=== PATIENT | female | born 1985 | race Caucasian/White ===

== ENCOUNTER 2016-12-22 13:45 | Emergency (ER) | payer BC, MEDICAID ==
--- NOTE | 2016-12-22 14:15 | Emergency Department Record ---
History of Present Illness - General Chief Complaint: Back Pain/Injury Stated Complaint: FELL/INJURED BUTT & BACK Time Seen by Provider: 12/22/16 14:10 Source: Patient Mode of Arrival: Ambulatory Limitations: No limitations - History of Present Illness Initial Comments: The patient fell at work 24 days ago and landed on her L buttocks and back. She now has been having progressively increasing pain in the region. The pain does not radiate down the legs. She denies any spine or abdominal pain and has had no leg numbness or weakness. When she told her boss today she had been having pain she was told she needed to go to the ER for treatment because it was work comp. Complaint: Back pain Onset/Timin -: Days(s) Similar Symptoms Previously: No Place: Work Radiation: None Severity: Moderate Severity scale (1-10): 8 Quality: Aching Consistency: Constant Improves With: None Worsens With: Movement, Other Context: Fall Associated Symptoms: Denies other symptoms Treatments Prior to Arrival: NSAIDS - Related Data Home Medications Medication Instructions Recorded Confirmed Last Taken No Home Med [NO HOME MEDS] 12/22/16 12/22/16 Unknown Allergies Allergy/AdvReac Type Severity Reaction Status Date / Time No Known Allergies Allergy NONE Verified 12/22/16 14:09 Travel Screening - Travel/Exposure Within Last 30 Days Have you traveled within the last 30 days?: No - Travel/Exposure Within Last Year Have you traveled outside the [place] in the last year?: No - Additonal Travel Details Have you been exposed to anyone with a communicable illness?: No Review of Systems Constitutional: Denies: Chills, Fever Past Medical History - SOCIAL HISTORY Smoking Status: Never smoker Alcohol Use: None Drug Use: None - RESPIRATORY Hx Respiratory Disorders: No - CARDIOVASCULAR Hx Cardio Disorders: No - NEURO Hx Neuro Disorders: No - GI Hx GI Disorders: No - Hx Genitourinary Disorders: Yes Hx Kidney Stones: Yes - ENDOCRINE Hx Endocrine Disorders: No - MUSCULOSKELETAL Hx Musculoskeletal Disorders: No - PSYCH Hx Psych Problems: No - HEMATOLOGY/ONCOLOGY Hx Hematology/Oncology Disorders: No Family Medical History Any Significant Family History?: No Physical Exam - General General Appearance: Alert, Oriented x3, Cooperative, No acute distress - Head Head exam: Atraumatic, Normocephalic, Normal inspection - Eye Eye exam: Normal appearance, PERRL - Respiratory Respiratory exam: Normal lung sounds bilaterally. negative: Respiratory distress - Cardiovascular Cardiovascular Exam: Regular rate, Normal rhythm, Normal heart sounds - GI/Abdominal GI/Abdominal exam: Soft, Normal bowel sounds. negative: Tenderness - Extremities Extremities exam: Normal inspection, Full ROM, Normal capillary refill. negative: Tenderness Image of Full Body: 1 - location of the pain and tenderness. - Back Back exam: Reports: Normal inspection, Tenderness (There is tenderness to palpation over the L lateral posterior pelvis area.). Denies: Vertebral tenderness - Neurological Neurological exam: Alert, Normal gait, Oriented X3. negative: Abnormal gait, Altered, Motor sensory deficit Course Vital Signs 12/22/16 14:01 Temperature 98.4 F Pulse Rate 72 Respiratory 20 Rate Blood Pressure 105/69 Pulse Ox 96 - Reevaluation(s) Reevaluation #1: I did explain the neg xray to the patient and the need for F/U. 12/22/16 15:15 Medical Decision Making - Data Complexity MDM Data: X-Ray Ordered and/or Reviewed - Radiology Data Radiology results: Report reviewed (Pelvis: Neg.) Disposition Disposition: Discharge Clinical Impression: Injury of pelvis Qualifiers: Encounter type: initial encounter Qualified Code(s): S39.93XA - Unspecified injury of pelvis, initial encounter Disposition: Home, Self-Care Instructions: Low Back Strain (ED) Additional Instructions: Please use Tylenol or Motrin for pain. Please see your work Occupational health provider in 3 days if not better. Forms: Patient Portal Access Time of Disposition: 15:16
== END 2016-12-22 16:00 | disposition home or self-care (01) ==
LOC: ER 13:45
DX: S39.93XA Unspecified injury of pelvis, initial encounter (principal); M54.5 Low back pain; W19.XXXA Unspecified fall, initial encounter; Y92.512 Supermarket, store or market as the place of occurrence of the external cause; Y99.0 Civilian activity done for income or pay
CPT/HCPCS: 72170; 99283

== ENCOUNTER 2017-07-12 18:30 | Emergency (ER) | payer BC ==
[2017-07-12] MEDS ORDERED: METOCLOPRAMIDE HCL 10 MG/2 ML VIAL IVP ONE (19:37)
[2017-07-12] MEDS ORDERED: DIPHENHYDRAMINE HCL IV 50 MG/ML VIAL IVP ONE (19:37)
[2017-07-12] MEDS ORDERED: KETOROLAC 30 MG/ML VIAL IVP ONE (19:37)
--- NOTE | 2017-07-12 19:43 | Emergency Department Record ---
History of Present Illness - General Chief Complaint: Headache Migraine Stated Complaint: MIGRAINE Time Seen by Provider: 07/12/17 19:37 Source: Patient Mode of Arrival: Ambulatory Limitations: No limitations - History of Present Illness Initial Comments: 31 yo female presents to ED for evaluation of a migraine headache that began this morning. Patient reports that she normally takes Maxalt for her chronic migraine headaches, however she started Buspar for anxiety last week and was told by the pharmacy that her Maxalt could cause a medication reaction, so she did not take the medication at home. Patient denies fevers, chills, or neck stiffness symptoms, reports that her headache symptoms are similar to previous episodes. MD Complaint: Headache Onset/Timin -: Hour(s) Onset Description: Gradual Location: Frontal, Right, Temporal Severity: Severe Severity scale (1-10): 10 Quality: Similar to previous headaches Consistency: Constant Improves With: Medication Worsens With: Light, Noise - Related Data Home Medications Medication Instructions Recorded Confirmed Last Taken Buspirone HCl [Buspar] 5 mg PO BID 07/12/17 07/12/17 Unknown Allergies Allergy/AdvReac Type Severity Reaction Status Date / Time No Known Allergies Allergy NONE Unverified 04/28/17 08:56 Travel Screening - Travel/Exposure Within Last 30 Days Have you traveled within the last 30 days?: No Review of Systems Constitutional: Denies: Chills, Fever, Malaise, Night sweats Eyes: Denies: Eye discharge, Eye pain ENT: Denies: Congestion, Ear pain, Epistaxis Respiratory: Denies: Cough, Dyspnea Cardiovascular: Denies: Chest pain, Dyspnea on exertion Endocrine: Denies: Fatigue, Heat or cold intolerance Gastrointestinal: Denies: Abdominal pain, Nausea, Vomiting Genitourinary: Denies: Incontinence, Retention Musculoskeletal: Denies: Arthralgia, Back pain, Gout, Joint swelling Skin: Denies: Bruising, Change in color Neurological: Reports: Headache. Denies: Abnormal gait, Confusion, Seizure Psychiatric: Denies: Anxiety Hematological/Lymphatic: Denies: Anemia, Blood Clots Past Medical History - SOCIAL HISTORY Smoking Status: Never smoker Alcohol Use: None Drug Use: None - RESPIRATORY Hx Respiratory Disorders: No - CARDIOVASCULAR Hx Cardio Disorders: No - NEURO Hx Neuro Disorders: No - GI Hx GI Disorders: No - Hx Genitourinary Disorders: Yes Hx Kidney Stones: Yes - ENDOCRINE Hx Endocrine Disorders: No - MUSCULOSKELETAL Hx Musculoskeletal Disorders: No - PSYCH Hx Psych Problems: No - HEMATOLOGY/ONCOLOGY Hx Hematology/Oncology Disorders: No Family Medical History Any Significant Family History?: No Physical Exam - General General Appearance: Alert, Oriented x3, Cooperative, Mild distress Limitations: No limitations - Head Head exam: Atraumatic, Normocephalic, Normal inspection Head exam detail: negative: Abrasion, Contusion, Sneed's sign, General tenderness, Hematoma, Laceration - Eye Eye exam: Normal appearance. negative: Conjunctival injection, Periorbital swelling, Periorbital tenderness, Scleral icterus - ENT Ear exam: negative: Auricular hematoma, Auricular trauma Nasal Exam: negative: Active bleeding, Discharge, Dried blood, Foreign body Mouth exam: negative: Drooling, Laceration, Muffled voice, Tongue elevation - Neck Neck exam: Normal inspection. negative: Meningismus, Tenderness - Respiratory Respiratory exam: Normal lung sounds bilaterally. negative: Rales, Respiratory distress, Rhonchi, Stridor - Cardiovascular Cardiovascular Exam: Regular rate, Normal rhythm, Normal heart sounds - GI/Abdominal GI/Abdominal exam: Soft. negative: Rebound, Rigid, Tenderness - Rectal Rectal exam: Deferred - exam: Deferred - Extremities Extremities exam: Normal inspection. negative: Calf tenderness, Pedal edema, Tenderness - Back Back exam: Denies: CVA tenderness (R), CVA tenderness (L) - Neurological Neurological exam: Alert, Normal gait, Oriented X3 - Psychiatric Psychiatric exam: Normal affect, Normal mood - Skin Skin exam: Normal color. negative: Abrasion Type of lesion: negative: abrasion Course Vital Signs 07/12/17 19:28 Temperature 98.7 F Pulse Rate [ 76 Pulse Ox Probe] Respiratory 20 Rate Blood Pressure 115/83 [Left Arm] Pulse Ox 100 - Reevaluation(s) Reevaluation #1: 07/12/17 20:32 patient reassessed and reports that her headache symptoms are down to 2/10 from 05/19. Patient appears stable for discharge at this time. 07/12/17 20:35 Disposition Disposition: Discharge Clinical Impression: Acute headache Qualifiers: Headache type: unspecified Intractability: not intractable Qualified Code(s): R51 - Headache Disposition: Home, Self-Care Condition: (2) Stable Instructions: Acute Headache (ED) Additional Instructions: Return to ED if your symptoms worsen or if you have any concerns. Follow-up with your family doctor in 3-5 days as directed. Forms: Patient Portal Access Time of Disposition: 20:33 Quality - Quality Measures Quality Measures: N/A - Blood Pressure Screening Does Patient Have Any of the Following: No Blood Pressure Classification: Pre-Hypertensive BP Reading Systolic Measurement: 115 Diastolic Measurement: 83 Screening for High Blood Pressure: < Pre-Hypertensive BP, F/U Documented > [ G8950] Pre-Hypertensive Follow-up Interventions: Referral to alternative/primary care provider.
[2017-07-12] MEDS ORDERED: 0.9 % SODIUM CHLORIDE 1000ML 1,000 ML IV SCH (19:45)
== END 2017-07-12 20:45 | disposition home or self-care (01) ==
LOC: ER 18:30
DX: R51 Headache (principal); R11.0 Nausea; H53.149 Visual discomfort, unspecified
CPT/HCPCS: 99284 ×2; 96374; 96375; J1885; J1200; J2765; J7030

== ENCOUNTER 2017-07-13 12:36 | Emergency (ER) | payer BC ==
[2017-07-13] MEDS ORDERED: DIPHENHYDRAMINE HCL IV 50 MG/ML VIAL IVP ONE (12:53)
[2017-07-13] MEDS ORDERED: METOCLOPRAMIDE HCL 10 MG/2 ML VIAL IVP ONE (12:53)
[2017-07-13] MEDS ORDERED: KETOROLAC 30 MG/ML VIAL IVP ONE (12:53)
--- NOTE | 2017-07-13 12:53 | Emergency Department Record ---
History of Present Illness - General Chief Complaint: Headache Migraine Stated Complaint: MIGRAINE Time Seen by Provider: 07/13/17 12:39 Source: Patient Mode of Arrival: Ambulatory Limitations: No limitations - History of Present Illness Initial Comments: The patient is here due to a migraine CASANOVA that is not relieved with Alleve. She states she has chronic migraine CASANOVA's and has had these exact same CASANOVA's for years. She recently started on Buspar 4 days ago and because of that medicine does not believe she can take her Maxalt due to possible interactions. She states the Maxalt has helped her for years but now she is nervous because of the interactions she read about and is reluctant to take it. The CASANOVA onset was at 7am and it has gradually worsened. She does have mild photophobia but no fever, neck stiffness or vomiting. This CASANOVA is exactly like her chronic migraine CASANOVA's. MD Complaint: "Migraine" Onset/Timin -: Hour(s) Onset Description: Gradual Location: Frontal Consistency: Constant Treatments Prior to Arrival: Other Treatment Prior to Arrival Comment:: Aleve - Related Data Allergies Allergy/AdvReac Type Severity Reaction Status Date / Time No Known Allergies Allergy NONE Unverified 04/28/17 08:56 Travel Screening - Travel/Exposure Within Last 30 Days Have you traveled within the last 30 days?: No - Travel/Exposure Within Last Year Have you traveled outside the [place] in the last year?: No - Additonal Travel Details Have you been exposed to anyone with a communicable illness?: No - Travel Symptoms Symptom Screening: None Review of Systems Constitutional: Denies: Chills, Fever Eyes: Denies: Eye discharge ENT: Denies: Congestion Respiratory: Denies: Cough, Dyspnea Past Medical History - SOCIAL HISTORY Smoking Status: Never smoker Alcohol Use: None Drug Use: None - RESPIRATORY Hx Respiratory Disorders: No - CARDIOVASCULAR Hx Cardio Disorders: No - NEURO Hx Neuro Disorders: No - GI Hx GI Disorders: No - Hx Genitourinary Disorders: Yes Hx Kidney Stones: Yes - ENDOCRINE Hx Endocrine Disorders: No - MUSCULOSKELETAL Hx Musculoskeletal Disorders: No - PSYCH Hx Psych Problems: No - HEMATOLOGY/ONCOLOGY Hx Hematology/Oncology Disorders: No Family Medical History Any Significant Family History?: No Physical Exam - General General Appearance: Alert, Oriented x3, Cooperative, No acute distress - Head Head exam: Atraumatic, Normocephalic, Normal inspection - Eye Eye exam: Normal appearance, PERRL, EOMI - ENT Throat exam: Normal inspection. negative: Tonsillar erythema, Tonsillar exudate - Neck Neck exam: Normal inspection, Full ROM. negative: Meningismus, Tenderness - Respiratory Respiratory exam: Normal lung sounds bilaterally. negative: Respiratory distress - Cardiovascular Cardiovascular Exam: Regular rate, Normal rhythm, Normal heart sounds - GI/Abdominal GI/Abdominal exam: Soft, Normal bowel sounds. negative: Tenderness - Extremities Extremities exam: Normal inspection, Full ROM, Normal capillary refill. negative: Tenderness - Neurological Neurological exam: Alert, Normal gait, Oriented X3. negative: Abnormal gait, Motor sensory deficit - Psychiatric Psychiatric exam: negative: Anxious, Depressed Course Vital Signs 07/13/17 12:38 Temperature 98.2 F Pulse Rate 74 Respiratory 16 Rate Blood Pressure 110/72 Pulse Ox 100 - Reevaluation(s) Reevaluation #1: The patient is doing well at this time. The pain is resolving and she is resting comfortably. 07/13/17 13:33 Reevaluation #2: The patient is doing very well at this time. Her pain has completely resolved and she is ready for home. 07/13/17 13:47 Disposition Disposition: Discharge Clinical Impression: Migraine Qualifiers: Migraine type: unspecified Status migrainosus presence: without status migrainosus Intractability: not intractable Qualified Code(s): G43.909 - Migraine, unspecified, not intractable, without status migrainosus Disposition: Home, Self-Care Condition: (2) Stable Instructions: Migraine Headache (ED) Additional Instructions: Please take your Maxalt if needed. Please see your PCP in 2 days as planned. Return to the ER for any problems or increased pain. Forms: Patient Portal Access Time of Disposition: 13:48 Quality - Quality Measures Quality Measures: N/A - Blood Pressure Screening View Details: Yes Does Patient Have Any of the Following: No Blood Pressure Classification: Normal BP Reading Systolic Measurement: 110 Diastolic Measurement: 72 Screening for High Blood Pressure: < Normal BP, F/U Not Required > [G8783]
[2017-07-13] MEDS ORDERED: 0.9 % SODIUM CHLORIDE 1,000 ML BAG IV ONE (12:59)
== END 2017-07-13 13:59 | disposition home or self-care (01) ==
LOC: ER 12:36
DX: G43.909 Migraine, unspecified, not intractable, without status migrainosus (principal); H53.149 Visual discomfort, unspecified
CPT/HCPCS: 99284 ×2; 96374; 96375; J1885; J1200; J2765; J7030

== ENCOUNTER 2017-08-04 09:14 | Emergency (ER) | payer BC ==
[2017-08-04] MEDS ORDERED: METOCLOPRAMIDE HCL 10 MG/2 ML VIAL IVP ONE (09:32)
[2017-08-04] MEDS ORDERED: 0.9 % SODIUM CHLORIDE 1,000 ML BAG IV ONE (09:32)
[2017-08-04] MEDS ORDERED: DIPHENHYDRAMINE HCL IV 50 MG/ML VIAL IVP ONE (09:32)
[2017-08-04] MEDS ORDERED: KETOROLAC 30 MG/ML VIAL IVP ONE (09:32)
[2017-08-04 09:44] LABS: BASO % 0.4 % (0-6); EOS % 1.2 % (0-6); GRAN % 64.2 % (47-80); HEMATOCRIT 41.7 % (35.0-47.0); HEMOGLOBIN 13.6 gm/dl (11.6-16.0); LYMPH % 24.3 % (16-45); MEAN CELL VOLUME 94.6 fl (81-97); MEAN CORPUSCULAR HEMOGLOBIN 30.8 pg (27-33); MEAN CORPUSCULAR HGB CONC 32.6 g/dl (32-36); MONO % 9.9 % (0-9); PLATELET COUNT 312 K/uL (130-400); RED BLOOD COUNT 4.41 M/uL (3.80-5.40); RED CELL DISTRIBUTION WIDTH 12.2 % (11.5-14.5); WHITE BLOOD COUNT W/O DIFF 5.6 K/uL (4.2-12.2)
[2017-08-04 09:54] LABS: BLOOD UREA NITROGEN 13 mg/dL (6-20); CREATININE 0.6 mg/dL (0.5-0.9); EST GLOMERULAR FILTRATION RATE > 60 mL/min
--- NOTE | 2017-08-04 09:56 | Emergency Department Record ---
History of Present Illness - General Chief Complaint: Headache Migraine Stated Complaint: MIGRAINE Time Seen by Provider: 08/04/17 09:24 Source: Patient Mode of Arrival: Ambulatory Limitations: No limitations - History of Present Illness Initial Comments: pt has had a headache for 4 days that wont go away. she vomited yesterday. she has never had a ct though she has been to drs for her headaches and was started on migraine meds. she states her headaches are always on the right behind the eye. MD Complaint: Headache Onset/Timin -: Days(s) Onset Description: Sudden Location: Frontal, Right, Temporal Severity: Severe Severity scale (1-10): 10 Quality: Aching, Pulsatile, Sharp, Throbbing Consistency: Constant Improves With: Nothing Worsens With: None Associated Symptoms: Nausea, Vomiting Treatments Prior to Arrival: Ibuprofen - Related Data Allergies Allergy/AdvReac Type Severity Reaction Status Date / Time No Known Allergies Allergy NONE Verified 08/04/17 09:17 Travel Screening - Travel/Exposure Within Last 30 Days Have you traveled within the last 30 days?: No - Travel/Exposure Within Last Year Have you traveled outside the [place] in the last year?: No - Additonal Travel Details Have you been exposed to anyone with a communicable illness?: No - Travel Symptoms Symptom Screening: None Review of Systems Reviewed: No additional complaints except as noted below Constitutional: Reports: As per HPI. Denies: Chills, Fever, Malaise, Night sweats, Weakness, Weight change Eyes: Reports: As per HPI. Denies: Eye discharge, Eye pain, Photophobia, Vision change ENT: Reports: As per HPI. Denies: Congestion, Dental pain, Ear pain, Epistaxis , Hearing loss, Throat pain Respiratory: Reports: As per HPI. Denies: Cough, Dyspnea, Hemoptysis, Stridor, Wheezes Cardiovascular: Reports: As per HPI. Denies: Arrhythmia, Chest pain, Dyspnea on exertion, Edema, Murmurs, Orthopnea, Palpitations, Paroxysmal nocturnal dyspnea, Rheumatic Fever, Syncope Endocrine: Reports: As per HPI. Denies: Fatigue, Heat or cold intolerance, Polydipsia, Polyuria Gastrointestinal: Reports: As per HPI. Denies: Abdominal pain, Constipation, Diarrhea, Hematemesis, Hematochezia, Melena, Nausea, Vomiting Genitourinary: Reports: As per HPI. Denies: Abnormal menses, Discharge, Dyspareunia, Dysuria, Frequency, Hematuria, Incontinence, Retention, Urgency Musculoskeletal: Reports: As per HPI. Denies: Arthralgia, Back pain, Gout, Joint swelling, Myalgia, Neck pain Skin: Reports: As per HPI. Denies: Bruising, Change in color, Change in hair/ nails, Lesions, Pruritus, Rash Neurological: Reports: As per HPI. Denies: Abnormal gait, Confusion, Headache, Numbness, Paresthesias, Seizure, Tingling, Tremors, Vertigo, Weakness Psychiatric: Reports: As per HPI. Denies: Anxiety, Auditory hallucinations, Depression, Homicidal thoughts, Suicidal thoughts, Visual hallucinations Hematological/Lymphatic: Reports: As per HPI. Denies: Anemia, Blood Clots, Easy bleeding, Easy bruising, Swollen glands Past Medical History - SOCIAL HISTORY Smoking Status: Never smoker Alcohol Use: None Drug Use: None - RESPIRATORY Hx Respiratory Disorders: No - CARDIOVASCULAR Hx Cardio Disorders: No - NEURO Hx Neuro Disorders: Yes Hx Headaches: Yes - GI Hx GI Disorders: No - Hx Genitourinary Disorders: Yes Hx Kidney Stones: Yes - ENDOCRINE Hx Endocrine Disorders: No - MUSCULOSKELETAL Hx Musculoskeletal Disorders: No - PSYCH Hx Psych Problems: No - HEMATOLOGY/ONCOLOGY Hx Hematology/Oncology Disorders: No Family Medical History Any Significant Family History?: No Physical Exam - General General Appearance: Alert, Oriented x3, Cooperative, Mild distress - Head Head exam: Normal inspection - Eye Eye exam: Normal appearance, PERRL, EOMI Pupils: Normal accommodation - ENT ENT exam: Normal exam, Mucous membranes moist, Normal external ear exam, Normal orophraynx Ear exam: Normal external inspection. negative: External canal tenderness Nasal Exam: Normal inspection. negative: Discharge, Sinus tenderness Mouth exam: Normal external inspection, Tongue normal Teeth exam: Normal inspection. negative: Dental caries Throat exam: Normal inspection. negative: Tonsillar erythema, Tonsillar exudate - Neck Neck exam: Normal inspection, Full ROM. negative: Tenderness - Respiratory Respiratory exam: Normal lung sounds bilaterally. negative: Respiratory distress - Cardiovascular Cardiovascular Exam: Regular rate, Normal rhythm, Normal heart sounds - GI/Abdominal GI/Abdominal exam: Soft, Normal bowel sounds. negative: Tenderness - Rectal Rectal exam: Deferred - exam: Deferred - Extremities Extremities exam: Normal inspection, Full ROM, Normal capillary refill. negative: Tenderness - Back Back exam: Reports: Normal inspection, Full ROM. Denies: Muscle spasm, Rash noted, Tenderness - Neurological Neurological exam: Alert, CN II-XII intact, Normal gait, Oriented X3 - Psychiatric Psychiatric exam: Normal affect, Normal mood - Skin Skin exam: Dry, Intact, Normal color, Warm Course Vital Signs 08/04/17 09:19 Temperature 97.4 F L Pulse Rate 74 Respiratory 20 Rate Blood Pressure 112/69 Pulse Ox 100 Medical Decision Making - Lab Data Result diagrams: 08/04/17 09:35 08/04/17 09:35 Lab Results 08/04/17 Range/Units 09:35 WBC 5.6 (4.2-12.2) K/uL RBC 4.41 (3.80-5.40) M/uL Hgb 13.6 (11.6-16.0) gm/dl Hct 41.7 (35.0-47.0) % MCV 94.6 (81-97) fl MCH 30.8 (27-33) pg MCHC 32.6 (32-36) g/dl RDW 12.2 (11.5-14.5) % Plt Count 312 (130-400) K/uL MPV 10.0 (7.4-10.4) fl Gran % 64.2 (47-80) % Lymphocytes % 24.3 (16-45) % Monocytes % 9.9 H (0-9) % Eosinophils % 1.2 (0-6) % Basophils % 0.4 (0-6) % Disposition Disposition: Discharge Clinical Impression: Migraine Qualifiers: Migraine type: unspecified Status migrainosus presence: without status migrainosus Intractability: not intractable Qualified Code(s): G43.909 - Migraine, unspecified, not intractable, without status migrainosus Disposition: Home, Self-Care Condition: (1) Good Instructions: Migraine Headache (ED) Additional Instructions: follow up with family doctor and neurologist. return sooner if worse. Quality - Quality Measures Quality Measures: N/A - Blood Pressure Screening Does Patient Have Any of the Following: No Blood Pressure Classification: Normal BP Reading Systolic Measurement: 112 Diastolic Measurement: 69 Screening for High Blood Pressure: < Normal BP, F/U Not Required > [G8783]
[2017-08-04 09:57] LABS: GLUCOSE,RANDOM 86 mg/dL (74-109)
[2017-08-04 10:23] LABS: ERYTHROCYTE SEDIMENTATION RATE 2 mm/hr (0-20)
--- NOTE | 2017-08-04 12:19 | CT SCAN REPORT ---
EXAM: CT SCAN HEAD WO CONTRAST HISTORY: SEVERE MIGRAINE HEADACHE. TECHNIQUE: Routine noncontrast CT examination of the head. COMPARISON: None. FINDINGS: The ventricles and subarachnoid spaces are normal in size. There is calcification within each globus pallidus. These appear symmetric. No other area of abnormally increased or decreased attenuation is noted throughout the brain substance. No abnormal extraaxial fluid collection is seen. No skull abnormality. The visualized paranasal sinuses and mastoid air cells are clear. There is rightward deviation of the osseous nasal septum. The orbits as visualized are unremarkable. IMPRESSION: NO CT EVIDENCE OF AN ACUTE INTRACRANIAL ABNORMALITY. BILATERAL GLOBUS PALLIDUS CALCIFICATION, THE ETIOLOGY OF WHICH IS INDETERMINATE. THIS CAN BE SEEN WITH METABOLIC AND INHERITED DISORDERS WELL TOXIC AND POSTINFECTIOUS ETIOLOGIES. THIS CAN ALSO BE IDIOPATHIC. JOB NUMBER: [id number] [facility]
== END 2017-08-04 10:55 | disposition home or self-care (01) ==
LOC: ER 09:14
DX: G43.909 Migraine, unspecified, not intractable, without status migrainosus (principal); R11.2 Nausea with vomiting, unspecified
CPT/HCPCS: 70450; 80048; 85025; 85651; 96374; 96375; 99284; J1200; J1885; J2765; J7030

== ENCOUNTER 2019-07-21 11:19 | Emergency (ER) | payer BC, MEDICAID, OTHER ==
--- NOTE | 2019-07-21 11:42 | Emergency Department Record ---
History of Present Illness - General Chief Complaint: Abdominal Pain Stated Complaint: ABD PAIN Time Seen by Provider: 07/21/19 11:28 Source: Patient Mode of Arrival: Ambulatory Limitations: No limitations - History of Present Illness Initial Comments: 33 yo female presents with about three months of abdominal pain. The pain is in the epigastric area and radiates to the chest at times. She does get some reflux symptoms frequently. She has pain with some foods. She reports she did have upper endoscopy once that demonstrated esophageal inflammation. She is on Prilosec twice daily. She does not smoke or drink. She is now avoiding certain foods and beverages. MD Complaint: Abdominal pain Onset/Timin -: Month(s) (3) Location: Epigastric Radiation: Chest, Epigastric Migration to: Epigastric Severity: Moderate Severity scale (1-10): 7 Quality: Dull Consistency: Constant Improves With: Medication, Other Worsens With: Eating Associated Symptoms: Anorexia, Other (No black stools) - Related Data LMP (females 10-50): Last week Home Medications Medication Instructions Recorded Confirmed Last Taken Levonorgestrel-Ethin Estradiol 1 each PO DAILY 07/21/19 07/21/19 07/21/19 [Lutera-28 Tablet] Omeprazole Magnesium [Prilosec Otc] 20 mg PO BID 07/21/19 07/21/19 07/21/19 Propranolol HCl 20 mg PO DAILY 07/21/19 07/21/19 07/21/19 Previous Rx's Medication Instructions Recorded Pantoprazole Sodium [Protonix] 40 mg PO BID #60 07/21/19 Sucralfate [Carafate] 1 g PO QID #200 [facility] [place] 07/21/19 Allergies Allergy/AdvReac Type Severity Reaction Status Date / Time No Known Allergies Allergy NONE Verified 07/21/19 11:35 Travel Screening - Travel/Exposure Within Last 30 Days Have you traveled within the last 30 days?: No - Travel/Exposure Within Last Year Have you traveled outside the [place] in the last year?: No - Additonal Travel Details Have you been exposed to anyone with a communicable illness?: No Review of Systems Constitutional: Denies: Chills, Fever, Malaise, Weakness Eyes: Denies: Eye discharge ENT: Denies: Congestion, Throat pain Respiratory: Denies: Cough, Dyspnea, Hemoptysis, Wheezes Cardiovascular: Denies: Chest pain, Palpitations, Syncope Endocrine: Denies: Fatigue, Polydipsia, Polyuria Gastrointestinal: Reports: As per HPI, Abdominal pain, Nausea. Denies: Diarrhea, Vomiting Genitourinary: Denies: Dysuria, Urgency Musculoskeletal: Denies: Arthralgia, Back pain, Myalgia Skin: Denies: Bruising, Change in color, Rash Neurological: Denies: Confusion, Headache Psychiatric: Denies: Anxiety Hematological/Lymphatic: Denies: Easy bleeding, Easy bruising Past Medical History - SOCIAL HISTORY Smoking Status: Never smoker Alcohol Use: None Drug Use: None - RESPIRATORY Hx Respiratory Disorders: No - CARDIOVASCULAR Hx Cardio Disorders: No - NEURO Hx Neuro Disorders: Yes Hx Headaches: Yes - GI Hx GI Disorders: Yes Hx Abdominal Pain: Yes Hx Reflux: Yes - Hx Genitourinary Disorders: Yes Hx Kidney Stones: Yes - ENDOCRINE Hx Endocrine Disorders: No - MUSCULOSKELETAL Hx Musculoskeletal Disorders: No - PSYCH Hx Psych Problems: No - HEMATOLOGY/ONCOLOGY Hx Hematology/Oncology Disorders: No Family Medical History Any Significant Family History?: No Physical Exam - General General Appearance: Alert, Oriented x3, No acute distress Limitations: No limitations - Head Head exam: Atraumatic, Normal inspection - Eye Eye exam: Normal appearance. negative: Conjunctival injection - ENT ENT exam: Normal exam Ear exam: Normal external inspection Nasal Exam: Normal inspection Mouth exam: Normal external inspection - Neck Neck exam: Normal inspection, Full ROM - Respiratory Respiratory exam: Normal lung sounds bilaterally. negative: Accessory muscle use, Decreased breath sounds, Prolonged expiratory, Respiratory distress, Rhonchi, Stridor, Wheezes - Cardiovascular Cardiovascular Exam: Regular rate, Normal rhythm, Normal heart sounds - GI/Abdominal GI/Abdominal exam: Soft, Tenderness (mild epigastric tenderness on palpation, otherwise very soft non tender abdomen). negative: Distended, Guarding, Rebound, Rigid - Rectal Rectal exam: Deferred - exam: Deferred - Extremities Extremities exam: Normal inspection - Back Back exam: Denies: CVA tenderness (R), CVA tenderness (L) - Neurological Neurological exam: Alert, Oriented X3 - Psychiatric Psychiatric exam: Normal affect, Normal mood - Skin Skin exam: Dry, Intact, Normal color, Warm Course Vital Signs 07/21/19 11:23 Temperature 98.0 F Pulse Rate 57 L Respiratory 16 Rate Blood Pressure 114/84 Pulse Ox 100 - Reevaluation(s) Reevaluation #1: 07/21/19 12:17 The CBC,CMP,Lipase and UA were reviewed No acute process 07/21/19 13:33 The US of the abdomen is negative 07/21/19 14:06 The results were discussed with the patient. I spoke with Dr Barragan who was in the GI clinic today. He did offer upper endoscopy to the patient today. The patient discussed it with her mother and ultimately decided to wait and follow up with the GI clinic. We discussed home care and reasons to return to the ED. Medical Decision Making - Lab Data Result diagrams: 07/21/19 11:45 07/21/19 11:45 Disposition Disposition: Discharge Clinical Impression: Epigastric pain Disposition: Home, Self-Care Condition: (1) Good Instructions: Epigastric Pain (ED) Additional Instructions: Review this ER visit and the tests performed with your family doctor Call your doctor for the next available follow up appointment Return to the ER for a recheck if worse, any new concerns or questions Take the prescriptions provided as directed Prescriptions: Sucralfate [Carafate] 1 g PO QID #200 [facility] Pantoprazole Sodium [Protonix] 40 mg PO BID #60 tab. Referrals: JACKLYN BARRAGAN [DOCTOR OF OSTEOPATH] - [facility] Special[facility] [Provider Group] Forms: Patient Portal Access Time of Disposition: 13:42 Quality - Quality Measures Quality Measures: N/A - Blood Pressure Screening Does Patient Have Any of the Following: No Blood Pressure Classification: Pre-Hypertensive BP Reading Systolic Measurement: 114 Diastolic Measurement: 84 Screening for High Blood Pressure: < Pre-Hypertensive BP, F/U Documented > [G8950] Pre-Hypertensive Follow-up Interventions: Referral to alternative/primary care provider.
[2019-07-21 11:56] LABS: BASO % 0.4 % (0-6); EOS % 1.5 % (0-6); GRAN % 55.4 % (47-80); HEMATOCRIT 40.3 % (35.0-47.0); HEMOGLOBIN 12.9 gm/dl (11.6-16.0); LYMPH % 34.9 % (16-45); MEAN CELL VOLUME 95.5 fl (81-97); MEAN CORPUSCULAR HEMOGLOBIN 30.6 pg (27-33); MEAN PLATELET VOLUME 10.3 fl (7.4-10.4); MONO % 7.8 % (0-9); PLATELET COUNT 233 K/uL (130-400); RED BLOOD COUNT 4.22 M/uL (3.80-5.40); RED CELL DISTRIBUTION WIDTH 12.3 % (11.5-14.5); WHITE BLOOD COUNT W/O DIFF 5.4 K/uL (4.2-12.2)
[2019-07-21 11:57] LABS: URINE APPEARANCE CLOUDY; URINE BILIRUBIN NEGATIVE (NEGATIVE); URINE BLOOD NEGATIVE (NEGATIVE); URINE COLOR ORANGE; URINE GLUCOSE (UA) NEGATIVE (NEGATIVE); URINE KETONE NEGATIVE (NEGATIVE); URINE LEUKOCYTE ESTERASE NEGATIVE (NEGATIVE); URINE NITRITE NEGATIVE (NEGATIVE); URINE PROTEIN NEGATIVE (NEGATIVE); URINE UROBILINOGEN 0.2 E.U./dL (0.20 - 1.00)
[2019-07-21 11:59] LABS: HCG,QUALITATIVE URINE NEGATIVE (NEGATIVE)
[2019-07-21 12:05] LABS: BLOOD UREA NITROGEN 13 mg/dL (6-20); CREATININE 0.7 mg/dL (0.5-0.9); EST GLOMERULAR FILTRATION RATE > 60 mL/min
[2019-07-21 12:06] LABS: LIPASE 40 U/L (13-60)
[2019-07-21 12:07] LABS: GLUCOSE,RANDOM 90 mg/dL (74-109)
[2019-07-21 12:10] LABS: ALB/GLOB RATIO 1.5 (1.1-1.8); ALBUMIN 4.2 g/dL (4.0-5.0); ALKALINE PHOSPHATASE 46 U/L (35-104); ALT/SGPT 16 U/L (<33); AST/SGOT 16 U/L (10.0-35.0)
--- NOTE | 2019-07-21 13:23 | ULTRASOUND REPORT ---
EXAMINATION: Complete Abdomen Ultrasound EXAM DATE: 07/21/2019 12:55 PM TECHNIQUE: Complete ultrasound of the abdomen was performed. INDICATION: epigastric pain COMPARISON: None FINDINGS: Liver: The liver is normal size and echogenicity. Gallbladder: No gallstones are present. There is no gallbladder wall thickening or pericholecystic fluid. Common Bile Duct: The common duct measures 3 mm. There is no intrahepatic or extrahepatic bile duct dilatation. Pancreas: The head and body of the pancreas are normal. The tail is obscured by bowel gas. Spleen: The spleen size and echogenicity is normal. Kidneys: There is no hydronephrosis. The size and echogenicity of the kidneys is normal. Abdominal Aorta: There is no abdominal aortic aneurysm. Inferior Vena Cava: The intrahepatic IVC is normal. Other Findings: No ascites. Vascular imaging: Not performed. IMPRESSION: Normal abdomen ultrasound. Dictated by: Lex Medrano MD on 07/21/2019 1:07 PM. .
== END 2019-07-21 14:10 | disposition home or self-care (01) ==
LOC: ER 11:19
DX: R10.13 Epigastric pain (principal); R07.9 Chest pain, unspecified
CPT/HCPCS: 76700; 80053; 81003; 81025; 83690; 85025; 86677; 99284